=== PATIENT | male | born 2000 | race Hispanic/Latino ===

== ENCOUNTER → 2020-05-14 | Outpatient (CLI) | payer BC, OTHER | LOC: RAD 05:00 → EDSTATUS 05-17 11:00 | PROVIDERS: ATTEND Internal Medicine Gastroenterology | DX: Z01.818 Encounter for other preprocedural examination (principal); K92.1 Melena; Z53.8 Procedure and treatment not carried out for other reasons; Z11.59 Encounter for screening for other viral diseases | CPT/HCPCS: 93005; U0002 ==